=== PATIENT | female | born 1955 ===

== ENCOUNTER 2018-05-20 06:41 | Day surgery (SDC) | payer OTHER ==
[2018-05-20 07:22] VITALS: BMI 25.6
[2018-05-20 07:30] VITALS: TEMP 98.4
[2018-05-20] MEDS ORDERED: Propofol 10 mg/ml Inj (20 ML) ONE ×2 (08:28→08:44)
[2018-05-20 11:35] VITALS: RESP 12
[2018-05-20 11:43] VITALS: BP 156/73; PULSE 55; O2SAT 99
== END 2018-05-20 10:13 | disposition home or self-care (01) ==
LOC: C.ENDO 06:41
PROVIDERS: ATTEND Internal Medicine Gastroenterology
DX: K62.5 Hemorrhage of anus and rectum (principal); D12.5 Benign neoplasm of sigmoid colon
CPT/HCPCS: 45380; 88305; J2704; J7040